=== PATIENT | female | born 1985 | race Caucasian/White ===

== ENCOUNTER 2017-09-18 00:04 | Emergency (ER) | payer OTHER ==
[~2017-09-18] VITALS: Ht 170.2 cm; Wt 66.7 kg
--- NOTE | 2017-09-18 01:25 | PHYS DOC ---
General Chief Complaint: OB/UTERINE CONTRACTIONS Stated Complaint: UTERUS PROBLEM Time Seen by MD: 01:22 Source: patient Exam Limitations: no limitations Problems: History of Present Illness Initial Comments patient is a 32-year-old female who comes to the ED complaining of CUT ORDER HAND problem. Patient states that she is 6 para 6 her youngest child is 9 months old. Her has been away with so she has had no recent sexual activity , she states that she started her menstrual period today and it is her habit to shave during menstruation as she feels negative cleaner. She states that earlier today while shaving in the shower she felt as if something were falling out of her vagina, as if her insides were falling out. She denies any pain or abnormal bleeding/discomfort with current menstrual period. She does state that she's had some urge incontinence since delivering her last child and it has become her habit to sit on the toilet while sneezing or coughing. No other trauma no discomfort no bowel or bladder symptoms otherwise. Patient does not follow with PCP or deputy register of deeds. States she is normally healthy takes no daily medications. Timing/Duration: this afternoon Severity/Quality: mild Location: vaginal Radiation: none Activities at Onset: other Prior Genitourinary Problems: none Sexual [place] History: greater than 2 months ago Modifying Factors: improves with other Associated Symptoms: other Past Medical History Medical History: no pertinent history Surgical History: noncontributory Para: 6 : 6 LMP (Females 10-50): this week Social History Smoker: non-smoker Alcohol: none Drugs: none Review of Systems Constitutional: denies chills, denies fever Respiratory: denies cough, denies shortness of breath Cardiovascular: denies chest pain, denies palpitations Gastrointestinal: denies abdominal pain, denies constipation, denies diarrhea, denies nausea Genitourinary: see HPI Musculoskeletal: denies back pain, denies joint pain Physical Exam General Appearance: WD/WN, no apparent distress Neck: non-tender, supple Cardiovascular/Respiratory: normal peripheral pulses, no respiratory distress Gastrointestinal: non tender, soft Rectal: deferred Pelvic: no cerv. motion tender, other (RN present for exam, bleeding consistent with menstruation and normal external female genitalia noted, the cervix is at the vaginal introitus consistent with uterine prolapse. Valsalva maneuver does produce movement at the cervix no internal exam.) Back: no CVA tenderness, no vertebral tenderness Extremities: normal inspection, no pedal edema Neurologic/Psychiatric: cell maker II-XII nml as tested, no motor/sensory deficits, alert, normal mood/affect, oriented x 3 Orders, Labs, Meds I discussed physical exam findings with the patient and the need for CUT ORDER HAND follow- up. 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 For whatever reason she wants to follow-up with someone not local and requested a specific referral from me. I discussed signs and symptoms to monitor for as well as indications for urgent return to the department. Her questions were answered to her satisfaction and she expressed agreement and understanding with treatment plan. Departure Time of Disposition: 01:22 Disposition: 01 HOME, SELF-CARE Diagnosis: uterine prolapse Condition: GOOD Patient Instructions: Prolapse Additional Instructions: Avoid heavy lifting until follow-up with deputy register of deeds. [id number] Tylenol and ibuprofen as needed. Per your request: Aashish Gore MD CORPORATE REAL ESTATE SPECIALIST [phone] call to schedule appointment. Return to ED with new or changing symptoms. OLIVE CRABTREE DO Sep 18, 2017 01:25
[2017-09-18 01:58] VITALS: BP 118/86
== END 2017-09-18 01:58 | disposition home or self-care (01) ==
LOC: ER 00:04
DX: N81.4 Uterovaginal prolapse, unspecified (principal)
CPT/HCPCS: 99283

== ENCOUNTER 2019-07-28 21:14 | Emergency (ER) | payer BC ==
[~2019-07-28] VITALS: Ht 172.7 cm; Wt 62.3 kg
[2019-07-28 22:19] LABS: BASO # 0.1 x10^3/uL (0.0-0.2); BASO % 1 % (0-3); EOS # 0.3 x10^3/uL (0.0-0.7); EOS % 3 % (0-3); HEMATOCRIT 34.8 % (36.0-47.0); HEMOGLOBIN 10.8 g/dL (12.0-15.5); LYMPH # 3.2 x10^3/uL (1.0-4.8); LYMPH % 33 % (24-48); MEAN CORPUSCULAR HEMOGLOBIN 22 pg (25-35); MEAN CORPUSCULAR HGB CONC 31 g/dL (31-37); MEAN CORPUSCULAR VOLUME 71 fL (79-100); MONO # 0.6 x10^3/uL (0.0-1.1); MONO % 6 % (0-9); NEUT # 5.6 x10^3uL (1.8-7.7); NEUT % 57 % (31-73); PLATELET COUNT 390 x10^3/uL (140-400); RED BLOOD COUNT 4.92 x10^6/uL (3.50-5.40); RED CELL DISTRIBUTION WIDTH 16.3 % (11.5-14.5); WHITE BLOOD COUNT 9.8 x10^3/uL (4.0-11.0)
[2019-07-28 22:28] LABS: ALBUMIN 3.7 g/dL (3.4-5.0); ALBUMIN/GLOBULIN RATIO 0.9 (1.0-1.7); CALCIUM 8.7 mg/dL (8.5-10.1); CREATININE 0.6 mg/dL (0.6-1.0); GFR 113.8; POTASSIUM 3.5 mmol/L (3.5-5.1); TOTAL BILIRUBIN 0.3 mg/dL (0.2-1.0); TOTAL PROTEIN 7.6 g/dL (6.4-8.2)
[2019-07-28 22:37] LABS: PLT ESTIMATE ADEQUATE (ADEQUATE)
[2019-07-28 22:40] LABS: ANISOCYTOSIS SLIGHT; HYPOCHROMIA MOD; MICROCYTOSIS MOD
[2019-07-28] MEDS ORDERED: CONTRAST GIVEN MC PRN (23:00)
[2019-07-28 23:29] VITALS: BP 121/63
[2019-07-28] MEDS ORDERED: IOHEXOL 350 MG/ML 100 ML VIAL. IV ONE (23:30)
--- NOTE | 2019-07-28 23:41 | RAD ---
Chest CTA History: Chest pain, elevated d-dimer Technique: After bolus of intravenous contrast, CT imaging was performed of the chest. Multiplanar reconstruction images to include MIP reconstruction images are submitted. Exposure: One or more of the following individualized dose reduction techniques were utilized for this examination: 1. Automated exposure control 2. Adjustment of the mA and/or kV according to patient size 3. Use of iterative reconstruction technique. Comparison: None Findings: No pulmonary embolism is identified. There is no pleural or pericardial effusion or pneumothorax. There is linear left lower lobe atelectasis. Major airways are patent. There are bilateral breast implants. Thoracic aortic caliber is within normal limits, no intraluminal flap. Impression: 1. No pulmonary embolism is identified. There is left lower lobe atelectasis. Electronically signed by: Norberto Blunt MD (07/28/2019 11:38 PM) [facility]
--- NOTE | 2019-07-28 23:52 | PHYS DOC ---
Past History Past Medical History: No Pertinent History Past Surgical History: Appendectomy Alcohol Use: Rarely Drug Use: None Adult General Chief Complaint Chief Complaint: RIB PAIN HPI HPI Patient is a 33-year-old female referred in by her primary doctor for evaluation of possible blood clot. She had a uterine prolapse repair back in May for the last few days she's been having left-sided rib pain sharp worse with deep breathing and palpation no trauma that she knows of mild cough no fever no real abdominal pain she did have a Ford horse earlier in the day but that went darcy y she also was having left ear pain but that seems to be a little bit better to the primary problem is the left-sided rib pain at the moment he the doctor did ultrasound showing normal spleen no free fluid small nonobstructive left renal colic less no displaced rib fractures no pneumonia on chest x-ray and was sent here then for evaluation of possible PE. Patient has no prior history of that Review of Systems Review of Systems Constitutional: Denies fever or chills [] Eyes: Denies change in visual acuity, redness, or eye pain [] HENT: Denies nasal congestion or sore throat [] Musculoskeletal: Integument: Denies rash or skin lesions [] Neurologic: Denies headache, focal weakness or sensory changes [] Endocrine: Denies polyuria or polydipsia [] All other systems were reviewed and found to be within normal limits, except as documented in this note. Current Medications Current Medications Current Medications Medications (Trade) Dose Ordered Sig/Gualberto Start Time Stop Time Status Last Admin Dose Admin Info (Do NOT chart on this entry -- for MONITORING) 1 each PRN DAILY PRN 07/28/19 23:00 07/30/19 22:59 Iohexol (Omnipaque 350 Mg/ml) 100 ml 1X ONCE 07/28/19 23:30 07/28/19 23:31 DC 07/28/19 23:13 90 ML Allergies Allergies Allergies Coded Allergies Type Severity Reaction Last Updated Verified Penicillins Allergy Unknown 07/28/19 Yes Physical Exam Physical Exam Constitutional: Well developed, well nourished, no acute distress, non-toxic appearance. [] HENT: Normocephalic, atraumatic, bilateral external ears normal, oropharynx moist, no oral exudates, nose normal. [](Membranes clear Eyes: PERRLA, EOMI, conjunctiva normal, no discharge. [] Neck: Normal range of motion, no tenderness, supple, no stridor. [] Cardiovascular:Heart rate regular rhythm, no murmur [] Lungs & Thorax: Bilateral breath sounds clear to auscultation []there is reduced reproducible chest wall tenderness on the left Abdomen: Bowel sounds normal, soft, no tenderness, no masses, no pulsatile masses. [] Skin: Warm, dry, no erythema, no rash. [] Back: No tenderness, no CVA tenderness. [] Extremities: No tenderness, no cyanosis, no clubbing, ROM intact, no edema. [] Neurologic: Alert and oriented X 3, normal motor function, normal sensory function, no focal deficits noted. [] Psychologic: Affect normal, judgement normal, mood normal. [] Current Patient Data Vital Signs see nurses note for complete vitals Lab Results Laboratory Tests Test 07/28/19 21:47 White Blood Count 9.8 x10^3/uL (4.0-11.0) Red Blood Count 4.92 x10^6/uL (3.50-5.40) Hemoglobin 10.8 g/dL (12.0-15.5) L Hematocrit 34.8 % (36.0-47.0) L Mean Corpuscular Volume 71 fL (79-100) L Mean Corpuscular Hemoglobin 22 pg (25-35) L Mean Corpuscular Hemoglobin Concent 31 g/dL (31-37) Red Cell Distribution Width 16.3 % (11.5-14.5) H Platelet Count 390 x10^3/uL (140-400) Neutrophils (%) (Auto) 57 % (31-73) Lymphocytes (%) (Auto) 33 % (24-48) Monocytes (%) (Auto) 6 % (0-9) Eosinophils (%) (Auto) 3 % (0-3) Basophils (%) (Auto) 1 % (0-3) Neutrophils # (Auto) 5.6 x10^3uL (1.8-7.7) Lymphocytes # (Auto) 3.2 x10^3/uL (1.0-4.8) Monocytes # (Auto) 0.6 x10^3/uL (0.0-1.1) Eosinophils # (Auto) 0.3 x10^3/uL (0.0-0.7) Basophils # (Auto) 0.1 x10^3/uL (0.0-0.2) Platelet Estimate Adequate (ADEQUATE) Hypochromasia Mod Anisocytosis Slight Microcytosis Mod D-Dimer (Brandi) 1.23 mg/L (0.00-0.50) H Maternal Serum HCG Beta Subunit < 1 mIU/mL (0-6) Sodium Level 139 mmol/L (136-145) Potassium Level 3.5 mmol/L (3.5-5.1) Chloride Level 104 mmol/L (98-107) Carbon Dioxide Level 27 mmol/L (21-32) Anion Gap 8 (6-14) Blood Urea Nitrogen 12 mg/dL (7-20) Creatinine 0.6 mg/dL (0.6-1.0) Estimated GFR (Cockcroft-Gault) 113.8 BUN/Creatinine Ratio 20 (6-20) Glucose Level 103 mg/dL (70-99) H Calcium Level 8.7 mg/dL (8.5-10.1) Total Bilirubin 0.3 mg/dL (0.2-1.0) Aspartate Amino Transferase (AST) 13 U/L (15-37) L Alanine Aminotransferase (ALT) 23 U/L (14-59) Alkaline Phosphatase 62 U/L (46-116) Total Protein 7.6 g/dL (6.4-8.2) Albumin 3.7 g/dL (3.4-5.0) Albumin/Globulin Ratio 0.9 (1.0-1.7) L EKG EKG [] Radiology/Procedures Radiology/Procedures [] Impressions: Impression: 1. No pulmonary embolism is identified. There is left lower lobe atelectasis. Electronically signed by: Paris Posada MD (07/28/2019 11:38 PM) [facility] DICTATED AND SIGNED BY: PARIS POSADA MD DATE: 07/28/19 [id number] CC: LOUIS GREER MD; KEISHA GRIER MD ~ Course & Med Decision Making Course & Med Decision Making Pertinent Labs and Imaging studies reviewed. (See chart for details) []D-dimer was elevated but the CT scan was negative for PE patient was reassured and discharged in stable condition Dragon Disclaimer Dragon Disclaimer This electronic medical record was generated, in whole or in part, using a voice recognition dictation system. Departure Departure: Impression: Primary Impression: Rib pain Disposition: 01 HOME, SELF-CARE Condition: STABLE Patient Instructions: Chest Wall Pain, [id number] KEISHA GRIER MD Jul 28, 2019 23:52
== END 2019-07-28 23:50 | disposition home or self-care (01) ==
LOC: ER 21:14
DX: R07.81 Pleurodynia (principal); H92.02 Otalgia, left ear; Z88.0 Allergy status to penicillin
CPT/HCPCS: 36415; 71275; 80053; 84702; 85025; 85379; 99285; Q9967

== ENCOUNTER → 2019-07-28 | Outpatient (CLI) | payer BC ==
--- NOTE | 2019-07-28 17:16 | RAD ---
Complete abdominal ultrasound HISTORY: Left upper quadrant pain. Attention spleen FINDINGS: Pancreas appears unremarkable. Inferior vena cava is patent. Abdominal aorta is atherosclerotic without evidence of a focal aneurysm. Liver appears unremarkable. No significant biliary ductal dilatation. Gallbladder is incompletely distended, without evidence of gallstone or significant gallbladder wall thickening. Right kidney measures 10.8 cm longitudinal without evidence of hydronephrosis. Left kidney measures 10.2 cm longitudinal without hydronephrosis. Small echogenic structure within the central left kidney, measuring 5 mm, compatible with a small nonobstructive calculus. Spleen is not enlarged and appears unremarkable. No evidence of ascites or free fluid. IMPRESSION: 1. Small nonobstructive left renal calculus. 2. Spleen appears unremarkable. Electronically signed by: Oliver Evangelista MD (07/28/2019 5:14 PM) [facility]
--- NOTE | 2019-07-28 17:34 | RAD ---
RIBS LEFT, CHEST PA LATERAL History: Pain. Cough. Technique: PA and lateral view of the chest and 3 additional views of the left ribs. Comparison: None. Findings: No pneumothorax. No consolidation or pleural effusion. Normal heart size. No displaced rib fractures. Impression: 1. No acute cardiopulmonary process. No displaced rib fractures. Electronically signed by: Gianfranco Gerard DO (07/28/2019 5:31 PM) [id number]
== END | disposition home or self-care (01) ==
LOC: US 16:37
PROVIDERS: ATTEND Family Medicine
DX: N20.0 Calculus of kidney (principal); R05 Cough; R07.81 Pleurodynia
CPT/HCPCS: 71046; 71100; 76700

== ENCOUNTER → 2019-10-24 | Outpatient (CLI) | payer BC ==
[~2019-10-24] MED LIST: CONTRAST GIVEN MC PRN; IOHEXOL 240 MG/ML 50ML VIAL. ONE; IOHEXOL 300 MG/ML 75 ML VIAL. IV ONE
--- NOTE | 2019-10-24 11:06 | RAD ---
CT ABD PELV W/ORAL IV CONTRAST Indication: Left lower quadrant abdominal pain, constipation Technique: Postcontrast CT imaging was performed of the abdomen and pelvis, multiplanar reconstruction images submitted. Oral contrast was also given. One or more of the following individualized dose reduction techniques were utilized for this examination: 1. Automated exposure control 2. Adjustment of the mA and/or kV according to patient size 3. Use of iterative reconstruction technique. Comparison: None Findings: There is no abnormality of the limited visualized lung bases. No focal abnormality is identified of the spleen or pancreas. There is a 0.7 cm hypodense lesion of the left lobe of the liver difficult to further characterize given smaller size, density measurements indeterminate for a simple cyst 43 Hounsfield units. Gallbladder is present without obvious intraluminal abnormality by CT. Both kidneys enhance, no hydronephrosis. There is no adrenal nodularity. There is fairly prominent retained stool in the colon greater of the right and transverse colon. There is distention of the urinary bladder. There is a hypodense lesion with peripheral enhancement of the left adnexa up to about 1.8 cm transverse by 1.7 cm AP by 1.7 cm CC. There is trace dependent free fluid in the pelvis. There is no free air. There is no significant localized inflammatory type change about the bowel. Reportedly there has been appendectomy. IMPRESSION: 1. There is a hypodense left adnexal lesion with peripheral enhancement, more likely a collapsing cyst assuming no suspicion for tubo-ovarian abscess or ectopic . There is trace free fluid in the posterior pelvis. 2. There is fairly prominent retained stool in the colon. 3. There is a small hypodense lesion of the left lobe of liver otherwise difficult to further characterize given small size. Electronically signed by: Norberto Blunt MD (10/24/2019 11:03 AM) [id number]
== END ==
LOC: CT 08:17
PROVIDERS: ATTEND Family Medicine
DX: R19.09 Other intra-abdominal and pelvic swelling, mass and lump (principal); K76.9 Liver disease, unspecified
CPT/HCPCS: 74177; Q9967

== ENCOUNTER → 2019-11-05 | Outpatient (CLI) | payer BC ==
--- NOTE | 2019-11-05 11:30 | RAD ---
US PELVIS W/TV Clinical Indication: Left ovarian cyst. Left lower quadrant pain. Comparison: CT abdomen and pelvis with contrast October 24, 2019. TECHNIQUE: Real-time ultrasound imaging of the pelvis using transabdominal and transvaginal window is performed. Findings: No pelvic free fluid is identified. No evidence of adnexal mass. Incidentally visualized urinary bladder is unremarkable. Retroverted uterus measures 8.4 x 6 x 4.3 cm. No focal abnormality of the myometrium. The endometrial stripe is normal measuring 11 mm. There is normal blood flow in the ovaries. There is an 11 mm left ovary functional cyst. There are other smaller left ovarian follicles. IMPRESSION: Normal pelvic ultrasound. Electronically signed by: Noe Guevara MD (11/05/2019 11:26 AM) [id number]
== END | disposition home or self-care (01) ==
LOC: US 08:53
PROVIDERS: ATTEND Family Medicine
DX: N83.292 Other ovarian cyst, left side (principal); N85.4 Malposition of uterus
CPT/HCPCS: 76830; 76856